=== PATIENT | male | born 1970 | race Caucasian/White ===

== ENCOUNTER → 2021-08-15 10:00 | Outpatient (BNVA) | payer BC, SELFPAY | PROVIDERS: Visit Provider Nurse Practitioner Family | DX: Z20.822 Contact with and (suspected) exposure to COVID-19 (principal) | CPT/HCPCS: 87635 ==

== ENCOUNTER 2022-06-28 10:52 | Emergency (ER) | payer BC, SELFPAY ==
[2022-06-28] VITALS (57 sets, daily range): BP systolic 116–145; BP diastolic 81–108; PULSE 85–115; RESP 16–25; TEMP 36.7; O2SAT 93–100; BMI 31.7
--- NOTE | 2022-06-28 11:50 | CT_ITS ---
WS: [id number] CT ABDOMEN AND PELVIS WITH CONTRAST HISTORY: left lower quad pain-suspect hernia TECHNIQUE: Imaging performed of the abdomen and pelvis with IV contrast. Single phase imaging of the abdomen. Coronal and sagittal reformats are submitted. All CT scans at [facility] use at [address] one of these dose optimization techniques: automated exposure control; mA and/or kV adjustment per patient size (includes targeted exams where dose is matched to clinical indication); or iterative re construction. IV CONTRAST: Omnipaque 350; 95 mL IV. Oral contrast: No DLP: 946.51 mGy.cm COMPARISON: None available. Lower thorax: New since 06/30/2015 is a noncalcified 7.9 mm nodule in the lingula. Additional 3 mm no dule RIGHT middle lobe. Heart is normal size. Small hiatal hernia. Liver/biliary system: Normal size with no intrahepatic dilatation. Gallbladder: Normal. No gallstones or wall thickening. No pericholecystic fluid. Pancreas: Normal size pancreas and pancreatic duct. No adjacent inflammation. Spleen: Normal size spleen. No mass or infarct. Adrenal glands: Normal. Right kidney: No obstruction or solid mass. Cortical cyst lower pole. Left kidney: Cortical cyst. No solid mass or obstruction. Aorta: Normal. Lymphadenopathy: None. Free fluid: None. GI tract: Negative stomach. No small bowel obstruction. Normal appendix. Minimal sigmoid diverticular disease. No acute diverticulitis. Abdominal wall: Unremarkable abdominal wall. No hernia. Pelvis: No free fluid or adenopathy within the pelvis. Well-distended urinary bladder. Inguinal canals are patent bilaterally. Increased soft tissue density extends into the patent LEFT in guinal canal with inflammation. There is inflammation and stranding along the LEFT inguinal canal. Bones: Unremarkable. CT/CT abdomen pelvis w con* [id number] IMPRESSION: 1. LEFT inguinal canal hernia containing omental fat which is strangulated. Fa t appears necrotic along the hernia. There is no colon or small bowel extending into the hernia sac. 2. Patent and otherwise unremarkable. RIGHT inguinal hernia. 3. Bilateral pulmonary nodules as described above. The largest in the lingula measures 7.9 mm. Recommend follow-up chest CT with contrast in 3 months.
--- NOTE | 2022-06-28 11:53 | W.ED.MALEGU ---
HPI - Male Genitourinary General: Chief complaint: Urogenital-Male Stated complaint: urinary pain Time Seen by Provider: 06/28/22 11:15 Source: patient Mode of arrival: ambulatory Limitations: no limitations History of Present Illness: This patient presents to our emergency department today from being referred by urgent care clinic. He states that he has had left lower quadrant pain over the last 2 days. He states the pain radiates down to his left testicle. He states he has had decreased appetite and 2 small bowel movements today which is unusual for him. He has not any fevers or chills. He has not had any trauma. He states he has been having a cough for the last 2 months. That has gradually improved but he still has paroxysms of cough at times. He states early on in this illness of coughing he developed pain in his left lower abdomen after a car coughing paroxysm that he thought he might of just strained himself but over the last 2 days this pain is markedly increased. He states he he moves in a certain direction and the pain is severe. He states he is not any swelling in his scrotum or any true testicle pain but the pain seems to radiate down his spermatic cord. He denies dysuria, hematuria etc. He is never had any abdominal surgeries or history of hernias. He otherwise has not had any fevers and his cough is markedly improved. Other family members had upper respiratory infections which preceded and coincided with his as well. He does smoke marijuana but does not smoke tobacco. Duration: progressively worsening Associated symptoms: Reports no associated symptoms; Deny dysuria, nausea or vomiting Review of Systems Const: Denies: fever(s) or chills Eyes: Denies: change in vision ENMT: Denies: throat pain, odynophagia, nasal discharge or nasal congestion Card: Denies: chest pain, palpitations or irregular heart rhythm Resp: Reports: non-productive cough; Denies: dyspnea, productive cough, wheezing or stridor GI: Reports: abdominal pain; Denies: nausea, vomiting, diarrhea or constipation : Denies: flank pain, difficulty urinating, dysuria or urinary frequency Musc: Denies: neck pain, back pain, extremity pain or extremity swelling Skin/Breast: Denies: rash Neuro: Denies: headache(s), numbness in extremities or weakness in extremities Psych: Reports: anxiety; Denies: depression or mood swings Endo: Denies: polyuria or polydipsia PFSH ED PFSH: Medical History Acute atopic conjunctivitis of left eye Social History Smoking and tobacco status: former smoker Physical Exam Narrative: EXAM NARRATIVE: The patient is somewhat anxious but alert and able to Answer questions in a goal-directed fashion. He makes good eye contact. Const: COMMON NORMALS: average body habitus, patient oriented x3, healthy appearing and alert GENERAL APPEARANCE: cooperative HENMT: COMMON NORMALS: normocephalic, Normal nasal mucous membranes and turbinates present, moist oral mucous membranes and oropharynx normal HEAD & SCALP: normocephalic NOSE: Normal nasal mucous membranes and turbinates present Eye: COMMON NORMALS: Equal, round and reactive pupils present and EOMs intact bilaterally PUPIL: Yes Equal, round and reactive pupils present Neck/C-Spine: COMMON NORMALS: full ROM, supple and no JVD Chest: COMMONS NORMALS: normal inspection of the chest and normal palpation of entire chest wall Resp: COMMON NORMALS: normal respiratory effort, No retractions and clear to auscultation bilaterally EFFORT & INSPECTION: Yes able to speak in complete sentences AUSCULTATION: clear to auscultation bilaterally Cardio: COMMON NORMALS: no JVD, regular rate, regular rhythm, No murmurs present (Cardio) and Peripheral pulses 2+ throughout RATE: regular rate RHYTHM: regular rhythm PERIPHERAL PULSES: Peripheral pulses 2+ throughout GI: OTHER: Abdominal examination revealed no tenderness with the exception of the left lower quadrant. He has tenderness approximately one third of the way above the suprapubic region. This extends down into the inguinal region. Inguinal examination reveals a palpable descending mass with Valsalva maneuver. No rebound or peritoneal signs noted at this time. : COMMON NORMALS: Yes no CVA tenderness BLADDER/KIDNEY EXAM: Yes no CVA tenderness PENIS: normal penis and circumcised TESTES: Yes testicular lie normal, No testicular tenderness, Yes epididymides normal and Yes other (Palpation of the left inguinal canal reveals a descending mass with Valsalv) Back/Pelvis: COMMON NORMALS: no CVA tenderness, thoracic and lumbar spine normal to inspection, no thoracic nor lumbar tenderness, thoraco-lumbar ROM normal and straight leg raise negative bilaterally Extremity: COMMON NORMALS: normal to inspection, full ROM and capillary refill normal Neuro: COMMON NORMALS: patient oriented x3, moves all extremities, no focal motor deficits and no sensory deficits noted SENSORIUM/ORIENTATION: Yes alert Psych: COMMON NORMALS: mental status grossly normal Skin: COMMON NORMALS: no rashes or lesions noted and turgor normal GENERAL SKIN EXAM: no rashes or lesions noted and turgor normal Course Reevaluation(s): Reevaluation #1: Patient was evaluated by general surgery. She felt that he would be better served by having a laparoscopic repair as he also has a hernia on the right side on clinical examination. He has made arrangements for him to see Dr. Koch who does hernia repair laparoscopically. Supposed to her open procedure. He voices understanding the plan and is stable at this time. Time: 16:34 Consultations: Consultation #1: Consulted general surgery who will come to the emergency department to evaluate the patient. Time: 14:13 Vital Signs: Vital signs: Vital Signs Temperature 98.1 F 06/28/22 11:03 Pulse Rate 114 H 06/28/22 12:25 Respiratory Rate 16 06/28/22 15:18 Blood Pressure 116/95 06/28/22 15:30 Pulse Oximetry 94 06/28/22 15:50 Oxygen Delivery Me thod 06/28/22 11:03 MDM - Male Medical Decision Making Patient with left lower quadrant pain findings consistent with a inguinal hernia on the left which is symptomatic due to inflammation and soreness in that area but no evidence of incarceration, strangulation of bowel etc. Surgical consult economic consultant recommended laparoscopic repair of that hernia I will as well as a asymptomatic hernia in the right inguinal region. Plan will be to discharge him to home with follow-up with Dr. Koch this coming week. We will make sure he has analgesics as well as start him on MiraLAX to prevent constipation. Return precautions discussed. Medical Records I reviewed the patient's medical records. Lab Data I reviewed the patient's lab results. 06/28/22 12:15 06/28/22 12:15 Radiology Impressions Abdomen/Pelvis CT 06/28/22 11:50 IMPRESSION: 1. LEFT inguinal canal hernia containing omental fat which is strangulated. Fat appears necrotic along the hernia. There is no colon or small bowel extending into the hernia sac. 2. Patent and otherwise unremarkable. RIGHT inguinal hernia. 3. Bilateral pulmonary nodules as described above. The largest in the lingula measures 7.9 mm. Recommend follow-up chest CT with contrast in 3 months. Laboratory Results WBC 9.4 10^3/uL (4.0-10.0) 06/28/22 12:15 RBC 5.98 10^6/uL (4.1-5.3) H 06/28/22 12:15 Hgb 16.3 g/dL (11.7-16.6) 06/28/22 12:15 Hct 50.8 % (42.0-52.0) 06/28/22 12:15 MCV 84.9 fl (80-94) 06/28/22 12:15 MCH 27.3 pg (28.0-34.0) L 06/28/22 12:15 MCHC 32.1 g/dL (30.0-36.0) 06/28/22 12:15 RDW 13.5 % (12.1-15.1) 06/28/22 12:15 Plt Count 249 10^3/cmm (130-400) 06/28/22 12:15 MPV 10.0 fL (7.4-10.4) 06/28/22 12:15 Neut % (Auto) 67.4 % 06/28/22 12:15 Lymph % (Auto) 22.4 % 06/28/22 12:15 [place] % (Auto) 7.6 % 06/28/22 12:15 Eos % (Auto) 1.5 % 06/28/22 12:15 Baso % (Auto) 0.7 % 06/28/22 12:15 Neut # (Auto) 6.33 10^3/uL (1.8-7.7) 06/28/22 12:15 Lymph # (Auto) 2.1 10^3/uL (0.8-4.8) 06/28/22 12:15 [place] # (Auto) 0.7 10^3/uL (0.2-0.9) 06/28/22 12:15 Eos # (Auto) 0.1 10^3/uL (0.0-0.8) 06/28/22 12:15 Baso # (Auto) 0.1 10^3/uL (0.0-0.1) 06/28/22 12:15 Nucleated RBC % (auto) 0 % 06/28/22 12:15 Nucleated RBCs # 0.0 /100WBC 06/28/22 12:15 Sodium 139 mmol/L (136-145) 06/28/22 12:15 Potassium 4.5 mmol/L (3.5-5.1) 06/28/22 12:15 Chloride 104 mmol/L (98-107) 06/28/22 12:15 Carbon Dioxide 27 mmol/L (22-29) 06/28/22 12:15 Anion Gap 12.5 (5-19) 06/28/22 12:15 BUN 14 mg/dL (6-20) 06/28/22 12:15 Creatinine 1.2 mg/dL (0.7-1.2) 06/28/22 12:15 GFR Calculation 63.6 mL/min (90-130) L 06/28/22 12:15 Glucose 94 mg/dL (65-115) 06/28/22 12:15 Calculated Osmolality 288 mOsm/kg (285-295) 06/28/22 12:15 Calcium 9.3 mg/dL (8.5-10.5) 06/28/22 12:15 Total Bilirubin 0.7 mg/dL (0.15-1.2) 06/28/22 12:15 AST 18 U/L (0-40) 06/28/22 12:15 ALT 14 U/L (0-41) 06/28/22 12:15 Alkaline Phosphatase 78 U/L (40-130) 06/28/22 12:15 Total Protein 7.8 g/dL (6.6-8.7) 06/28/22 12:15 Albumin 4.6 g/dL (3.5-5.2) 06/28/22 12:15 Globulin 3.2 g/dL (1.3-4.6) 06/28/22 12:15 Urine Color Yellow (Yellow) 06/28/22 13:17 Urine Appearance Clear (CLEAR) 06/28/22 13:17 Urine pH 8 (5-7) H 06/28/22 13:17 Ur Specific [place] 1.010 (1.005-1.030) 06/28/22 13:17 Urine Protein Neg (Negative) 06/28/22 13:17 Urine Glucose (UA) Norm (Normal) 06/28/22 13:17 Urine Ketones Negative (Negative) 06/28/22 13:17 Urine Blood Neg (Negative) 06/28/22 13:17 Urine Nitrate Negative (Negative) 06/28/22 13:17 Urine Bilirubin Neg (Negative) 06/28/22 13:17 Prot Sulfosalicylic Acd Negative (Negative) 06/28/22 13:17 Urine Urobilinogen Neg mg/dL (Negative) 06/28/22 13:17 Ur Leukocyte Esterase Negative (Negative) 06/28/22 13:17 Discharge Plan Discharge Patient Disposition: Home Clinical Impression: Hernia, inguinal, left Condition: Stable Prescriptions: New oxycodone-acetaminophen 7.5-325 mg tablet 1 tab PO Q6H PRN (Reason: pain) Qty: 20 0RF Miralax 17 gram powder in packet 17 g PO BID Qty: 30 1RF No Action Benadryl 25 mg Capsule 100 mg PO BEDTIME ibuprofen 200 mg Tablet 600 mg PO Q6H PRN (Reason: Pain) melatonin 2.5 mg Tablet,Chewable 5 mg PO BEDTIME Discharge Orders: Discharge ED (Routine); Ordered 06/28/22 Ordered By: Markell Francis Referrals: Jose Manuel Koch DO [Physician] - 4-7 days Discharge Diet: Usual diet Discharge Activity: Limit activity as instructed Patient Instructions: Opioid Safety, Pain Management Activity Restrictions/Additional Instructions: As we discussed you do have hernias that will require surgical repair. We have provided pain medicine as well as a stool softening agent for you to use. Limit your activity to prevent worsening symptoms. You may use either [id number] cough suppressants and or teaspoon to a tablespoon of honey as needed to help control any coughing. Develop increasing pain, fevers, no bowel movements or other concerns return to this or the nearest emergency department otherwise follow-up with Dr. Koch next week as scheduled. Stand Alone Forms: Work/School Release Coding Level of Care Code ED Customer Retention Representative for Lu Fwjusto Exam Comprehensive
[2022-06-28] MEDS: sodium chloride 0.9% 500 ML IV (12:19)
[2022-06-28] MEDS: morphine 4 mg/mL SDV 1 mL IVP ×2 (12:19→15:18)
[2022-06-28] MEDS: ondansetron 2 mg/ML SDV 2 mL 4 MG IVP (12:20)
[2022-06-28 12:27] LABS: Basophils # 0.1 10^3/uL (0.0-0.1); Basophils % 0.7 %; Eosinophils # 0.1 10^3/uL (0.0-0.8); Eosinophils % 1.5 %; Hematocrit 50.8 % (42.0-52.0); Hemoglobin 16.3 g/dL (11.7-16.6); Lymphocytes # 2.1 10^3/uL (0.8-4.8); Lymphocytes % 22.4 %; Mean Corpuscular HGB Conc 32.1 g/dL (30.0-36.0); Mean Corpuscular Hemoglobin 27.3 pg (28.0-34.0); Mean Corpuscular Volume 84.9 fl (80-94); Monocytes # 0.7 10^3/uL (0.2-0.9); Monocytes % 7.6 %; Neutrophils # 6.33 10^3/uL (1.8-7.7); Neutrophils % 67.4 %; Nucleated Red Blood Cells % 0 %; Platelet Count 249 10^3/cmm (130-400); Red Blood Count 5.98 10^6/uL (4.1-5.3); Red Cell Distribution Width 13.5 % (12.1-15.1); White Blood Count 9.4 10^3/uL (4.0-10.0)
[2022-06-28] MEDS: iohexol 350 mg/mL 500 mL Btl (per mL) IV (12:42)
[2022-06-28 12:45] LABS: Alanine Aminotransferase 14 U/L (0-41); Albumin Level 4.6 g/dL (3.5-5.2); Alkaline Phosphatase 78 U/L (40-130); Anion Gap 12.5 (5-19); Aspartate Amino Transferase 18 U/L (0-40); Blood Urea Nitrogen 14 mg/dL (6-20); Calcium 9.3 mg/dL (8.5-10.5); Carbon Dioxide 27 mmol/L (22-29); Chloride 104 mmol/L (98-107); Globulin 3.2 g/dL (1.3-4.6); Glomerular Filtration Rate 63.6 mL/min (90-130); Glucose 94 mg/dL (65-115); Osmolality Calculated 288 mOsm/kg (285-295); Potassium 4.5 mmol/L (3.5-5.1); Sodium 139 mmol/L (136-145); Total Bilirubin 0.7 mg/dL (0.15-1.2); Total Protein 7.8 g/dL (6.6-8.7)
[2022-06-28 13:24] LABS: Add Urine Microscopic? NO; Charge for UA Resulting for Rev
[2022-06-28 13:26] LABS: Urine Appearance Clear (CLEAR); Urine Color Yellow (Yellow); pH Urine 8 (5-7)
[2022-06-28 13:27] LABS: Bilirubin Urine Neg (Negative); Blood Urine Neg (Negative); Glucose Urine UA Norm (Normal); Ketones Urine Negative (Negative); Leukocyte Esterase Urine Negative (Negative); Nitrate Urine Negative (Negative); Protein Urine Neg (Negative); Sulfosalicylic Acid Urine Negative (Negative); Urobilinogen Urine Neg (Negative)
--- NOTE | 2022-06-28 16:22 | P.CONIM_ITS ---
Providers/Reason For Consult Consulting Physician/Specialty*: Cindy Fuller MD General Surgery Reason for Consult*: Inguinal hernia History of Present Illness History of Present Illness Dimitri Gabriel Jr is a 51 year old male who presents with worsening left lower quadrant pain for the past month. He had a recent respiratory illness with a significant amount of coughing. He has in the past few days noticed a sensation of feeling like something was going to push out of his abdomen when he coughs. He does admit to chronic cough. He denies constipation or obstructive voiding symptoms. He does not handle heavy loads on a regular basis. Review of Systems Const: Denies: fever(s) or chills Card: Denies: chest pain Resp: Denies: dyspnea GI: Reports: abdominal pain; Denies: nausea, vomiting or constipation Nile/Lymph: Reports: easy bleeding (Denies known bleeding disorder) Medications/Allergies Home Medications Medication Instructions Recorded Confirmed Last Taken Type diphenhydramine HCl 25 mg capsule 100 mg PO BEDTIME 06/28/22 06/28/22 06/27/22 History (Benadryl) ibuprofen 200 mg tablet 600 mg PO Q6H PRN Pain 06/28/22 06/28/22 06/27/22 History melatonin 2.5 mg chewable tablet 5 mg PO BEDTIME 06/28/22 06/28/22 06/27/22 History oxycodone-acetaminophen 7.5 mg-325 1 tab PO Q6H PRN pain #20 tabs 06/28/22 Unknown Rx mg tablet polyethylene glycol 3350 17 gram 17 g PO BID #30 ea 06/28/22 Unknown Rx oral powder packet (Miralax) Allergies Allergy/AdvReac Type Severity Reaction Status Date / Time Penicillins Allergy ESTRELLITAY-Swell Verified 06/28/22 15:13 Lip/Tongue/Throat PFSH Acute PFSH: Medical History Acute atopic conjunctivitis of left eye Social History Smoking and tobacco status: former smoker Vitals/I&O/Wt Last Vital Signs Temp 98.1 F 06/28/22 11:03 Pulse 114 H 06/28/22 12:25 Resp 16 06/28/22 15:18 BP 116/95 06/28/22 15:30 Pulse Ox 94 12/08/22 15:50 O2 Del Method 06/28/22 11:03 Weight last 48 hrs Weight 221 lb Physical Exam Narrative: Patient examined with nurse appeals nurse Const: COMMON NORMALS: no acute distress and alert NUTRITIONAL APPEARANCE: overweight Resp: COMMON NORMALS: normal respiratory effort and clear to auscultation bilaterally AUSCULTATION: clear to auscultation bilaterally Cardio: COMMON NORMALS: regular rate, regular rhythm, S1 normal heart sound present and S2 normal heart sound present RATE: regular rate RHYTHM: regular rhythm HEART SOUNDS: S1 normal heart sound present and S2 normal heart sound present GI: COMMON NORMALS: Soft to palpation INSPECTION: No abdominal distension AUSCULTATION: Yes normoactive bowel sounds PALPATION: Yes Soft to palpation : MALE GROIN/PERINEUM EXAM: Yes hernia OTHER: Tenderness at left external ring, difficult to appreciate a mass. No overlying induration or erythema. Nontender right inguinal area, although subtle fullness is present. Neuro: SENSORIUM/ORIENTATION: Yes alert Data 06/28/22 12:15 06/28/22 12:15 CT Abd/Pel: Radiologist's impression: Radiology Impressions Abdomen/Pelvis CT 06/28/22 11:50 IMPRESSION: 1. LEFT inguinal canal hernia containing omental fat which is strangulated. Fat appears necrotic along the hernia. There is no colon or small bowel extending into the hernia sac. 2. Patent and otherwise unremarkable. RIGHT inguinal hernia. 3. Bilateral pulmonary nodules as described above. The largest in the lingula measures 7.9 mm. Recommend follow-up chest CT with contrast in 3 months. A&P Assessment and plan (1) Hernia, inguinal, left: Incarcerated omentum in left inguinal hernia without visceral herniation. Asymptomatic right inguinal hernia. I discussed with the patient the option of open left inguinal hernia repair tomorrow. He could then either wait until the right side becomes symptomatic or have the right side repaired at some later point. I discussed with him that I generally recommend staged repair of bilater al hernias when done open. He was also offered follow-up with Dr. Koch, who is able to offer a laparoscopic repair. The laparoscopic approach is definitely advantageous in the setting of bilateral hernias, since both can be repaired through the same incisions. The patient would prefer to have a single surgical treatment and convalescence versus staged. Appointment was was obtained to see Dr. Koch in clinic for follow-up on July 02 at 2:30 PM. Coding Level of Care Code Acute Outsole Leveler for Chg Fwd Exam Detailed Diagnoses Hernia, inguinal, left K40.90
== END 2022-06-28 16:55 | disposition home or self-care (01) ==
PROVIDERS: Emergency Provider Emergency Medicine
DX: K40.90 Unilateral inguinal hernia, without obstruction or gangrene, not specified as recurrent (principal); Z87.891 Personal history of nicotine dependence
CPT/HCPCS: 12345; 74177; 80053; 81003; 85025; 96361; 96374; 96375; 96376; 99285; J2270; J2405; J7040; Q9967

== ENCOUNTER 2022-07-04 10:27 | Day surgery (SDC) | payer BC, SELFPAY ==
[2022-07-03 14:17] VITALS: BMI 31.8
[2022-07-04] VITALS (10 sets, daily range): BP systolic 107–150; BP diastolic 71–111; PULSE 76–121; RESP 10–20; TEMP 36.5–36.9; O2SAT 90–98
[2022-07-04] MEDS: sodium chloride 0.9% 1,000 ML 30 ML IV (11:08)
[2022-07-04] MEDS: vancomycin 1,500 MG/300 ML PIGGYBACK 200 MG IV (11:09)
--- NOTE | 2022-07-04 11:15 | ANES.PREANE2 ---
Pre-Anesthetic Assessment Height/Weight: Height 1.78 m Weight 100.698 kg Temp Pulse Resp BP Pulse Ox O2 Del Method 97.7 F 76 18 134/96 96 07/04/22 10:50 07/04/22 10:50 07/04/22 10:50 07/04/22 10:50 07/04/22 10:50 07/04/22 10:51 Preop Diagnosis: Bilateral inguinal hernias Operation Date: 07/04/22 12:00 Proposed Procedures p lap bilateral inguinal hernia 24351 x2,K40.20(Bilateral) - Jose Manuel Koch DO Familial anesthetic complications: None Was Beta Tino taken within 24 hours: N/A Was Clonidine taken within 24 hours: N/A Last intake: Intake Last Liquid Date 07/03/22 Last Liquid Time 23:30 Last Solid Date 07/03/22 Last Solid Time 21:30 Social No alcohol and No tobacco Smoked THC at 0800 ( couple of puffs ) Exam alert, oriented x 3, clear to auscultation bilaterally and regular rate & rhythm Airway Mallampati: Class II Dentition: full and other (cavities) Anesthetic Plan ASA status: 2 Anesthesia: General Risk of > 500 ml blood loss (7ml/kg in children): No Medications/Allergies Home Medications Medication Instructions Recorded Confirmed Last Taken Type diphenhydramine HCl 25 mg capsule 100 mg PO BEDTIME 06/28/22 07/04/22 07/03/22 21:00 History (Benadryl) ibuprofen 200 mg tablet 600 mg PO Q6H PRN Pain 06/28/22 07/03/22 06/27/22 History melatonin 2.5 mg chewable tablet 5 mg PO BEDTIME 06/28/22 07/04/22 07/03/22 21:00 History oxycodone-acetaminophen 7.5 mg-325 1 tab PO Q6H PRN pain #20 tabs 06/28/22 07/04/22 07/04/22 08:00 Rx mg tablet polyethylene glycol 3350 17 gram 17 g PO BID #30 ea 06/28/22 07/04/22 07/03/22 18:00 Rx oral powder packet (Miralax) Allergies Allergy/AdvReac Type Severity Reaction Status Date / Time Penicillins Allergy ALGY-Swell Verified 07/04/22 10:45 Lip/Tongue/Throat Current Medications Generic Name Dose Route Start Last Admin Trade Name Alq PRN Reason Stop Dose Admin Sodium Chloride 1,000 mls @ 30 mls/hr 07/04/22 10:45 07/04/22 11:08 Sodium Chloride 0.9% IV 07/05/22 10:44 30 mls/hr .Q24H CLAUDIA Administration Vancomycin/PEG/NADA/Lysine/Water 1,500 mg in 300 mls @ 200 mls/hr 07/04/22 10:31 07/04/22 11:09 Vancocin IV 07/04/22 12:00 200 mls/hr PHOTOGRAPHIC PLATEMAKER ONE Administration Protocol [facility] Anesthesia Medical History Acute atopic conjunctivitis of left eye History of lipoma Surgical History History of shoulder surgery Social History Smoking and tobacco status: former smoker Data Anesthesia Cardiac Studies: No Data to Display
--- NOTE | 2022-07-04 11:39 | W.PM.OPSUD ---
Surgery/Procedure H&P Update DATE OF PROCEDURE: July 04, 2022 DATE H&P PERFORMED: 07/02/22 PREOP DIAGNOSIS: Bilateral inguinal hernias PLANNED PROCEDURE: Operation Date: 07/04/22 12:00 Proposed Procedures p lap bilateral inguinal hernia 52488 x2,K40.20(Bilateral) - Jose Manuel Koch DO
[2022-07-04] MEDS: midazolam 1 mg/mL INJ 2 mL 2 MG IVP (11:52)
--- NOTE | 2022-07-04 14:56 | PM.OP ---
Operative Report Date of procedure: July 04, 2022 Pre-op diagnosis: Preop Diagnosis Bilateral inguinal hernias Post-op diagnosis: same Procedure done: Laparoscopic repair of bilateral inguinal hernias with mesh Implants: Left and right extra-large 3D max Bard mesh Surgeon: Dr. Jose Manuel Koch DO Anesthesia: General Estimated blood loss (mL): 5 Complications: None apparent Findings: Bilateral indirect hernias Brief History: This is a very pleasant 51-year-old gentleman who came into my office with severe left groin pain and a left inguinal hernia. A right inguinal hernia was also identified. Bilateral laparoscopic inguinal hernia repair with mesh was indicated. The risks and benefits were explained and documented. Procedure: Patient was wheeled into the operative room and placed on the OR table in a supine position. Abdomen was inspected prepped and draped in usual sterile fashion. Time-out was performed and all present were in agreement. A 15 blade scalpel was used to make 1.2 centimeter incision infraumbilically. Combination of sharp and blunt dissection was performed down to the anterior rectus sheath which was opened sharply. The dissecting balloon was then inserted into the space of Retzius and blown up. We put the camera into the port and identified that we were in the correct space. I then placed 2 5 millimeter trocars suprapubically in the midline. I then used atraumatic graspers to bluntly dissect in the space of Retzius out laterally. An indirect inguinal hernia was identified on the right. Blunt dissection was performed to dissect down the hernia sac until the vas deferens dove medially. A large right inguinal mesh was then placed into the space of Retzius. The mesh was unrolled and tacked once medially at the pubic bone. The mesh laid out nicely over the spermatic cord. An indirect inguinal hernia was identified on the left. Blunt dissection was performed to dissect down the hernia sac until the vas deferens dove medially. A large left inguinal mesh was then placed into the space of Retzius. The mesh was unrolled and tacked once medially at the pubic bone. The mesh laid out nicely over the spermatic cord. I watched the hernia sacs remain in place as insufflation was removed. Incisions were closed with 4 O Vicryl in a subcuticular interrupted fashion. Skin glue was applied. Patient tolerated the procedure well.
[2022-07-04] MEDS: oxyCODONE-APAP 10-325 mg Tablet 1 TAB PO (16:22)
--- NOTE | 2022-07-04 16:31 | ANE.PACU2 ---
Inpatient post-anesthesia follow up: Airway intact: Yes Vital signs: Temperature 97.8 F Pulse Rate 91 Respiratory Rate 17 Blood Pressure 144/88 Pulse Oximetry 94 Oxygen Delivery Me thod Room Air Oxygen Flow Rate 10 Fraction of Inspir ed Oxygen Hydration adequate: Yes Nausea and vomiting: No Pain level: 1 Mental status: Baseline
== END 2022-07-04 16:28 | disposition home or self-care (01) ==
PROVIDERS: Visit Provider Surgery
PROC: (CPT 49650; principal; 2022-07-04 12:00)
DX: K40.20 Bilateral inguinal hernia, without obstruction or gangrene, not specified as recurrent (principal); Z87.891 Personal history of nicotine dependence
CPT/HCPCS: 49650; 51702; C1781; J1100; J1170; J2250; J2405; J2704; J2710; J3010; J3370; J3490; J7030